=== PATIENT | female | born 1975 | race Caucasian/White ===

== ENCOUNTER 2020-12-11 22:03 | Emergency (ER) | payer OTHER, SELFPAY ==
[2020-12-11 22:03] VITALS: BP 143/78; PULSE 116; RESP 18; TEMP 37.2; O2SAT 97; BMI 44.6
[2020-12-11 22:37] LABS: Bacteria 0 SEEN /hpf (None Seen); Mucous, Urine 0 SEEN /hpf (<or=2+)
[2020-12-11 22:48] LABS: Color, Urine Yellow (Yellow); Glucose, Dipstick Normal (Normal); Ketone-Dipstick Negative (Negative); Leukocyte Esterase-Dipstick 500 /ul (Negative); Nitrite-Dipstick Negative (Negative); Occult Blood-Urine 250 /ul (Negative); Protein-Dipstick 30 mg/dl (Negative); Specific Gravity, Urine 1.015 (1.002-1.030); Urine Bilirubin Dipstick Negative (Negative); Urine Clarity Cloudy (Clear); Urine Urobilinogen Normal (Normal)
[2020-12-11] MEDS: 0.9% Normal Saline 1,000 ML 150 ML IV (22:48)
[2020-12-11 22:50] LABS: Absolute Lymphocyte Count 1.48 X10^3/uL (0.83-4.51); Absolute Neutrophil Count 8.5 X10^3/uL (2.0-7.7); Basophil# 0.03 X10^3/uL; Basophil% 0.3 % (0-1); Eosinophil# 0.04 X10^3/uL; Eosinophils% 0.4 % (0-5); Hematocrit 38.9 % (37-47); Hemoglobin 12.7 g/dL (12.0-15.0); Lymphocyte # 1.48 X10^3/ul (0.83-4.51); Lymphocyte % 13.1 % (19-41); Mean Corp Hgb Conc 32.6 g/dL (32-36); Mean Corpuscular Hgb 27.6 pg (27.0-32.0); Mean Corpuscular Volume 84.6 fL (81-99); Mean Platelet Vol. 10.1 fl (6.2-12.0); Monocyte# 1.17 X10^3/uL; Monocyte% 10.4 % (0-10); NRBC Flagged by Analyzer 0 % (0-5); Neutrophil # 8.54 X10^3/uL (2.7-7.7); Neutrophil % 75.4 % (47-70); Platelet Count 194 K/mm3 (150-450); RBC Distribution Width CV 13.3 % (11.6-14.6); RBC Distribution Width SD 41.3 fl (35.1-43.9); White Blood Count 11.3 K/mm3 (4.4-11.0)
[2020-12-11 22:59] LABS: Red Blood Cells-Urine 5-10 SEEN /hpf (0-5); Squamous Epithelial Cells - UA 0-5 SEEN /hpf (5-10); White Blood Cells >100 SEEN /hpf (0-5)
[2020-12-11 23:06] LABS: Anion Gap 8 (5-15); BUN 14 mg/dL (7-18); BUN/Creat Ratio 11.3 RATIO (10-20); Calcium,Total 8.8 mg/dL (8.5-10.1); Chloride 100 mmol/L (98-107); Creatinine, Serum 1.24 mg/dL (0.55-1.02); EST Glomerular Filtration Rate 50 mL/min (>60); Est Glom Filt Rate - Afr Amer 60 mL/min (>60); Estimated Creatinine Clearance 63.26 ml/min; Glucose 150 mg/dL (74-106); Potassium 3.6 mmol/L (3.5-5.1); Sodium Level 135 mmol/L (136-145)
[2020-12-11 23:15] LABS: Lactic Acid 1.3 mmol/L (0.4-1.9)
--- NOTE | 2020-12-11 23:26 | EX.ED.DYSGE1 ---
HPI History of Present Illness Chief Complaint: Complaint Informant: patient Onset/Context/Timing Onset: Days Context: Gradual Onset Timing: Waxes and wanes Current Severity: Mild Maximum Severity: Moderate Narrative Narrative: Patient presents secondary to known kidney stone and developing a fever. Patient was diagnosed with an 8 mm proximal right sided kidney stone at [facility] 6 days ago. Patient was seen by her PCP yesterday and advised she would not able to pass this needs to follow-up with urology. She will call tomorrow for an appointment. She developed chills followed by a fever of 101.5 at home tonight. She does want to ensure there was no significant infection that she would need antibiotics were. She otherwise feels well. She denies cough or URI symptoms. She had some mild lower abdominal cramping. No dysuria. [facility] Medical History Kidney stones Home Medications sulfamethoxazole-trimethoprim [Bactrim DS] 1 tab PO BID #14 tab 12/12/20 [Rx Last Taken Unknown] Allergy/AdvReac Type Severity Reaction Status Date / Time ciprofloxacin [From Cipro] Allergy Hives Verified 12/11/20 22:06 nitrofurantoin Allergy Hives Verified 12/11/20 22:06 [From Macrobid] Surgical History History of cholecystectomy History of discectomy Social History Smoking Status: Never smoker ROS ROS ED Constitutional Constitutional ED: Reports chills and fever(s) Eyes Eyes: Denies change in vision ENT ENT ED: Denies sore throat Cardiovascular Cardiovascular: Denies chest pain Respiratory/Chest Respiratory/Chest: Denies cough or dyspnea Gastrointestinal Gastrointestinal: Reports abdominal pain; Denies diarrhea, nausea or vomiting Genitourinary Genitourinary ED: Denies dysuria Musculoskeletal Musculoskeletal: Reports back pain Integumentary Denies rash Neurologic Neurologic: Denies headache(s) or weakness Psychiatric Psychiatric: Denies anxiety or depression Endocrine Endocrinology: Denies polydipsia or polyuria Allergic/Immunologic Allergic/Immunologic ED: Denies urticaria EXAM Physical Exam Const Vital Signs: 12/11/20 22:03 Temperature 99 F Temperature Source Oral Pulse Rate 116 H Respiratory Rate 18 Blood Pressure 143/78 H Blood Pressure Mean 99 Pulse Ox 97 Oxygen Delivery Method Room Air Positive well nourished and well developed General Appearance ED: well developed HEENT Reports normocephalic and head/scalp atraumatic Eyes PERRL and EOMs intact bilaterally Neck supple Chest Wall inspection of chest normal and palpation of chest normal Resp normal respiratory effort and clear to auscultation bilaterally Cardio regular rate and regular rhythm GI non-tender Auscultation: hypoactive bowel sounds Palpation: soft Back/Spine no CVA tenderness Extremity normal to inspection Neuro oriented x3 and no sensory deficits noted Sensorium / Orientation: alert Motor Exam: strength 5/5 throughout Psych mental status grossly normal Skin no rashes or lesions noted MDM MDM MDM Narrative Medical decision making narrative: Blood work and urinalysis are obtained. Blood cultures and urine culture are sent. Lab Data Attestation: I reviewed the patient's lab results. Labs: Laboratory Results - last 24 hr 12/11/20 12/11/20 12/11/20 22:12 22:40 22:40 WBC 11.3 H RBC 4.60 Hgb 12.7 Hct 38.9 MCV 84.6 MCH 27.6 MCHC 32.6 RDW Std Deviation 41.3 RDW Coeff of Partha 13.3 Plt Count 194 MPV 10.1 Immature Gran % (Auto) 0.400 Neut % (Auto) 75.4 H Lymph % (Auto) 13.1 L [place] % (Auto) 10.4 H Eos % (Auto) 0.4 Baso % (Auto) 0.3 Absolute Neuts (auto) 8.5 H Absolute Lymphs (auto) 1.48 Nucleated RBC % 0 Sodium 135 L Potassium 3.6 Chloride 100 Carbon Dioxide 27.0 Anion Gap 8 BUN 14 Creatinine 1.24 H Estim Creat Clear Calc 63.26 Est GFR (MDRD) Af Amer 60 Est GFR (MDRD) Non-Af 50 L BUN/Creatinine Ratio 11.3 Glucose 150 H Lactic Acid Calcium 8.8 Urine Color Yellow Urine Clarity Cloudy Urine pH 6.0 Ur Specific [place] 1.015 Urine Protein 30 H Urine Glucose (UA) Normal Urine Ketones Negative Urine Occult Blood 250 H Urine Nitrite Negative Urine Bilirubin Negative Urine Urobilinogen Normal Ur Leukocyte Esterase 500 H Urine RBC 5-10 SEEN Urine WBC >100 SEEN Ur Squamous Epith Cells 0-5 SEEN Urine Bacteria 0 SEEN Urine Mucus 0 SEEN 12/11/20 22:40 WBC RBC Hgb Hct MCV MCH MCHC RDW Std Deviation RDW Coeff of Partha Plt Count MPV Immature Gran % (Auto) Neut % (Auto) Lymph % (Auto) [place] % (Auto) Eos % (Auto) Baso % (Auto) Absolute Neuts (auto) Absolute Lymphs (auto) Nucleated RBC % Sodium Potassium Chloride Carbon Dioxide Anion Gap BUN Creatinine Estim Creat Clear Calc Est GFR (MDRD) Af Amer Est GFR (MDRD) Non-Af BUN/Creatinine Ratio Glucose Lactic Acid 1.3 Calcium Urine Color Urine Clarity Urine pH Ur Specific [place] Urine Protein Urine Glucose (UA) Urine Ketones Urine Occult Blood Urine Nitrite Urine Bilirubin Urine Urobilinogen Ur Leukocyte Esterase Urine RBC Urine WBC Ur Squamous Epith Cells Urine Bacteria Urine Mucus Treatment and Re-Evaluation Comments:: Patient is given IV fluids. Urinalysis does show leukocyte esterase and white cells, but 0 bacteria. She is given a dose of IV Rocephin and will be treated with Bactrim. She is to call Dr. Olson tomorrow for close follow-up. She is given return instructions. Discharge Plan Triage Chief Complaint: Complaint ED Provider: Myriam Cornell Dx/Rx/DC Orders Clinical Impression: Kidney stone, Fever Instructions: ED Fever Control (Adult), ED Kidney Stone w/ Colic Prescriptions: New sulfamethoxazole-trimethoprim [Bactrim DS] 800-160 mg tablet 1 tab PO BID Qty: 14 RF: 0 Primary Care Provider: Alpesh Fischer Referrals: Alpesh Fischer DO [Primary Care Provider] - Saurabh Olson MD [STAFF PHYSICIAN] - As soon as possible Disposition Disposition: Home, self care
[2020-12-11] MEDS: Ceftriaxone 1 GM/50 ML BAG IV (23:39)
[2020-12-12 00:43] VITALS: BP 141/68; PULSE 96; RESP 18; O2SAT 98
== END 2020-12-12 00:46 | disposition home or self-care (01) ==
PROVIDERS: Emergency Provider Emergency Medicine; PCP Family Medicine
DX: R50.9 Fever, unspecified (principal); N20.0 Calculus of kidney
CPT/HCPCS: 80048; 81001; 83605; 85025; 87040; 87086; 87088; 96365; 99283; J7030; A4216

== ENCOUNTER 2020-12-12 10:39 | Day surgery (SDC) | payer OTHER, SELFPAY ==
[2020-12-11 22:03] VITALS: BMI 44.6
[2020-12-12] VITALS (9 sets, daily range): BP systolic 110–143; BP diastolic 57–87; PULSE 91–111; RESP 14–18; TEMP 36.3–38.2; O2SAT 96–100; BMI 44.4
--- NOTE | 2020-12-12 11:03 | EKG12_ITS ---
Test Reason : CP Blood Pressure : / mmHG Vent. Rate : 101 BPM Atrial Rate : 101 BPM P-R Int : 144 ms QRS Dur : 090 ms QT Int : 328 ms P-R-T Axes : 057 035 028 degrees QTc Int : 425 ms Sinus tachycardia Otherwise normal ECG Confirmed by DES YORK, GUILLE ([id number]), editor farm journal NATI NAZARIO ([id number]) on 12/15/2020 9:53:54 AM Referred By: Confirmed By:GUILLE UNNES MD
--- NOTE | 2020-12-12 11:21 | EDS_ITS ---
HPI History of Present Illness Chief Complaint: Chest Pain Informant: patient Onset/Context/Timing Onset: Days (3) Activity at onset: gradual Timing: Intermittent Quality: Positive for Dull (Soreness) Location: Substernal Worsened By: Nothing Relieved By: Nothing Associated Symptoms: Positive for Nausea, Vomiting and Fever; Negative for Diaphoresis, Dyspnea, Cough, Lightheadedness, Acid Reflux and Palpitations Narrative Narrative: Patient presents with chest pain that has been intermittent over the past 3 days. Patient describes it as a soreness. Patient states it is over the substernal area. Patient states it comes and goes. Patient admits to some nausea and vomiting. Patient also admits to fever of 101.5 at home. Patient was at her urologist office today and was asked about the chest pain. Patient told the urologist who then referred the patient to the emergency department for cardiac work-up. Patient is scheduled for stone removal and stent placement later today. However, with her chest pain, she needs to be cleared cardiac lara before she can be allowed to go to surgery. Patient has an 8 mm proximal right ureteral calculus. CVD Risk Factors: Negative for Hypertension, Diabetes, Hypercholesterolemia, Family History 1' </=55 and Smoking PE Risk Factors: Negative for Recent Travel/Surgery, Recent Immobilization, Prior DVT or PE and Cancer [facility] Medical History (Updated 12/12/20 @ 12:[address] Jean Marie Meza DO) Kidney stones Home Medications sulfamethoxazole-trimethoprim [Bactrim DS] 1 tab PO BID #14 tab 12/12/20 [Rx Last Taken Unknown] Allergy/AdvReac Type Severity Reaction Status Date / Time ciprofloxacin [From Cipro] Allergy Hives Verified 12/12/20 10:40 nitrofurantoin Allergy Hives Verified 12/12/20 10:40 [From Macrobid] Surgical History (Updated 12/12/20 @ 11:[address] Jean Marie Meza DO) History of section History of cholecystectomy History of discectomy Social History Smoking Status: Never smoker ROS ROS ED Constitutional Constitutional ED: Reports fever(s); Denies chills Eyes Eyes: Denies blurry vision or change in vision ENT ENT ED: Denies rhinorrhea or sore throat Cardiovascular Cardiovascular: Reports chest pain; Denies palpitations Respiratory/Chest Respiratory/Chest: Denies cough or dyspnea Gastrointestinal Gastrointestinal: Reports nausea and vomiting; Denies abdominal pain Genitourinary Genitourinary ED: Reports hematuria; Denies dysuria Musculoskeletal Musculoskeletal: Reports back pain; Denies neck pain Integumentary Denies abscess or rash Neurologic Neurologic: Reports headache(s); Denies weakness Allergic/Immunologic Allergic/Immunologic ED: Denies mouth swelling or urticaria EXAM Physical Exam Const Vital Signs: 12/12/20 10:39 12/12/20 10:41 12/12/20 10:44 Temperature 97.3 F L 97.3 F L Temperature Source Temporal Temporal Pulse Rate 111 H 111 H Respiratory Rate 14 14 Respiratory Effort Normal Respiratory Pattern Blood Pressure 143/77 H 143/77 H Blood Pressure Mean 99 99 Blood Pressure Source Blood Pressure Position Blood Pressure Location Pulse Ox 99 99 Oxygen Delivery Method Room Air Room Air 12/12/20 11:41 12/12/20 12:33 12/12/20 13:38 Temperature 98.9 F 98.9 F Temperature Source Temporal Temporal Pulse Rate 101 H 101 H Respiratory Rate 18 18 Respiratory Effort Respiratory Pattern Normal Blood Pressure 122/63 H 122/63 H Blood Pressure Mean 82 82 Blood Pressure Source Monitor Blood Pressure Position Sitting Blood Pressure Location Right Arm Pulse Ox 99 99 Oxygen Delivery Method Room Air Room Air Room Air Positive well nourished, well developed and obese General Appearance ED: well developed Nutritional Appearance: obese HEENT normocephalic and atraumatic Eyes PERRL and EOMs intact bilaterally Neck supple and no JVD Chest Wall palpation of chest normal Resp normal respiratory effort and clear to auscultation bilaterally Effort and Inspection: Negative for respiratory distress Cardio regular rate, regular rhythm and no murmurs GI normal to inspection, nondistended, normoactive bowel sounds, soft to palpation, non-tender and non-distended Extremity normal to inspection General Extremety ED: Negative for edema or tenderness General Extremity: Negative for edema Neuro oriented x3, CN's II-XII intact bilaterally and no sensory deficits noted Sensorium / Orientation: awake and alert Motor Exam: strength 5/5 throughout Psych mental status grossly normal Heart Score History: Slightly/Non-Suspicious ECG: Normal Age: </= 45 years Risk Factors: No Risk Factors Troponin: </= Normal Limit Score: 0 MDM MDM MDM Narrative Medical decision making narrative: EKG was obtained. On my interpretation, it showed a normal sinus rhythm with a rate of 101. [place] interval, QRS interval, and QTc intervals were all normal. Supai was normal. There are no acute ST or T wave changes. Portable 1 view chest x-ray was obtained. On my interpretation, lung stiles are clear. There is normal cardiac silhouette. Bony thorax is normal. There is no acute process noted. Radiologist also interpreted the x- ray and agrees. CBC and basic metabolic profile were obtained and were essentially within normal limits. Troponin was normal. Case was discussed with Dr. Mack. She recommended obtaining a COVID-19 rapid antigen and test. These were ordered. She will take patient to surgery later today. Patient will be transferred there. Patient understood and was agreeable with the plan. All questions were answered. Lab Data Attestation: I reviewed the patient's lab results. Labs: Laboratory Results - last 24 hr 12/12/20 12/12/20 12/12/20 11:25 11:25 12:30 WBC 10.2 RBC 4.47 Hgb 12.3 Hct 38.9 MCV 87.0 MCH 27.5 MCHC 31.6 L RDW Std Deviation 42.6 RDW Coeff of Partha 13.3 Plt Count 186 MPV 10.3 Immature Gran % (Auto) 0.400 Neut % (Auto) 76.1 H Lymph % (Auto) 11.0 L [place] % (Auto) 11.9 H Eos % (Auto) 0.2 Baso % (Auto) 0.4 Absolute Neuts (auto) 7.8 H Absolute Lymphs (auto) 1.12 Nucleated RBC % 0 Sodium 137 Potassium 3.8 Chloride 101 Carbon Dioxide 27.0 Anion Gap 9 BUN 12 Creatinine 1.13 H Estim Creat Clear Calc 69.42 Est GFR (MDRD) Af Amer 67 Est GFR (MDRD) Non-Af 56 L BUN/Creatinine Ratio 10.6 Glucose 117 H Calcium 8.5 Troponin I < 0.015 Serum , Qual Urine Color Yellow Urine Clarity Sl. Cloudy Urine pH 5.0 Ur Specific [place] 1.020 Urine Protein 100 H Urine Glucose (UA) Normal Urine Ketones 5 H Urine Occult Blood 150 H Urine Nitrite Negative Urine Bilirubin Negative Urine Urobilinogen Normal Ur Leukocyte Esterase 100 H Urine RBC 0-5 SEEN Urine WBC 5-10 SEEN Ur Squamous Epith Cells 5-10 SEEN Urine Bacteria 1+ Urine Mucus 0 SEEN 06/14/21 12:40 WBC RBC Hgb Hct MCV MCH MCHC RDW Std Deviation RDW Coeff of Partha Plt Count MPV Immature Gran % (Auto) Neut % (Auto) Lymph % (Auto) [place] % (Auto) Eos % (Auto) Baso % (Auto) Absolute Neuts (auto) Absolute Lymphs (auto) Nucleated RBC % Sodium Potassium Chloride Carbon Dioxide Anion Gap BUN Creatinine Estim Creat Clear Calc Est GFR (MDRD) Af Amer Est GFR (MDRD) Non-Af BUN/Creatinine Ratio Glucose Calcium Troponin I Serum , Qual NEGATIVE Urine Color Urine Clarity Urine pH Ur Specific [place] Urine Protein Urine Glucose (UA) Urine Ketones Urine Occult Blood Urine Nitrite Urine Bilirubin Urine Urobilinogen Ur Leukocyte Esterase Urine RBC Urine WBC Ur Squamous Epith Cells Urine Bacteria Urine Mucus Radiography Chest X-Ray - ED: 1 View, Read by ED Physician, Read by Radiologist and Normal Diagnostic Testing: Radiology Impression Chest X-Ray 12/12/20 11:30 IMPRESSION: Normal x-ray examination of the chest. Electronically Signed: Talha Moffett MD at 12:11 EDT , Service support , EKG Initial EKG: Attestation: I personally reviewed and interpreted this EKG as follows: Interpretation: No Acute Injury Pattern and Sinus Tachycardia (101) Prior EKG tracings: not available for review Treatment and Re-Evaluation Vital Sign Attestation:: Vital signs were reviewed prior to admission to the surgery unit. They are stable. Discharge Plan Dx/Rx/DC Orders Clinical Impression: Calculus of proximal right ureter, Chest pain of uncertain etiology Disposition Disposition: Acute Care Hospital [facility] Discharge Date/Time: 12/12/20 13:39
[2020-12-12 11:30] LABS: Absolute Lymphocyte Count 1.12 X10^3/uL (0.83-4.51); Absolute Neutrophil Count 7.8 X10^3/uL (2.0-7.7); Basophil# 0.04 X10^3/uL; Basophil% 0.4 % (0-1); Eosinophil# 0.02 X10^3/uL; Eosinophils% 0.2 % (0-5); Hematocrit 38.9 % (37-47); Hemoglobin 12.3 g/dL (12.0-15.0); Lymphocyte # 1.12 X10^3/ul (0.83-4.51); Mean Corp Hgb Conc 31.6 g/dL (32-36); Mean Corpuscular Hgb 27.5 pg (27.0-32.0); Mean Platelet Vol. 10.3 fl (6.2-12.0); Monocyte# 1.21 X10^3/uL; Monocyte% 11.9 % (0-10); NRBC Flagged by Analyzer 0 % (0-5); Neutrophil # 7.75 X10^3/uL (2.7-7.7); Neutrophil % 76.1 % (47-70); Platelet Count 186 K/mm3 (150-450); RBC Distribution Width CV 13.3 % (11.6-14.6); RBC Distribution Width SD 42.6 fl (35.1-43.9); Red Blood Count 4.47 M/mm3 (4.2-5.4); White Blood Count 10.2 K/mm3 (4.4-11.0)
--- NOTE | 2020-12-12 11:30 | RAD_ITS ---
STUDY: X-RAY CHEST REASON FOR EXAM: Female, 44 years old. Chest pain TECHNIQUE: Single AP portable view of the chest. COMPARISON: None. FINDINGS: The lungs are clear and expanded. There is no demonstrated pleural abnormality. Normal size heart. Normal mediastinum and marianela. Normal visualized pulmonary arteries. Normal visualized aortic arch and descending thoracic aorta. Normal visualized thoracic spine. Normal visualized ribs, clavicles, and shoulders. There is no demonstrated abnormality of the visualized soft tissue structures of the upper abdomen. RAD/Chest 1 View (Portable) IMPRESSION: Normal x-ray examination of the chest. Electronically Signed: Talha Moffett MD at 12:11 EDT , Service support ,
[2020-12-12 11:47] LABS: Anion Gap 9 (5-15); BUN 12 mg/dL (7-18); BUN/Creat Ratio 10.6 RATIO (10-20); Calcium,Total 8.5 mg/dL (8.5-10.1); Chloride 101 mmol/L (98-107); Creatinine, Serum 1.13 mg/dL (0.55-1.02); EST Glomerular Filtration Rate 56 mL/min (>60); Est Glom Filt Rate - Afr Amer 67 mL/min (>60); Estimated Creatinine Clearance 69.42 ml/min; Glucose 117 mg/dL (74-106); Potassium 3.8 mmol/L (3.5-5.1); Sodium Level 137 mmol/L (136-145)
[2020-12-12 12:34] LABS: Mucous, Urine 0 SEEN /hpf (<or=2+)
[2020-12-12 12:36] LABS: Color, Urine Yellow (Yellow); Glucose, Dipstick Normal (Normal); Ketone-Dipstick 5 mg/dl (Negative); Leukocyte Esterase-Dipstick 100 /ul (Negative); Nitrite-Dipstick Negative (Negative); Occult Blood-Urine 150 /ul (Negative); Protein-Dipstick 100 mg/dl (Negative); Urine Bilirubin Dipstick Negative (Negative); Urine Clarity Sl. Cloudy (Clear); Urine Urobilinogen Normal (Normal)
[2020-12-12 12:44] LABS: Bacteria 1+ /hpf (None Seen); Red Blood Cells-Urine 0-5 SEEN /hpf (0-5); Squamous Epithelial Cells - UA 5-10 SEEN /hpf (5-10); White Blood Cells 5-10 SEEN /hpf (0-5)
[2020-12-12 13:16] LABS: Internal QC Validated? YES +Cl - CLEAR BKGD; Pregnancy, Serum, hCG Quali. NEGATIVE Negative
[2020-12-12] MEDS: Lactated Ringers 1,000 ML 100 ML IV ×2 (14:20→20:14)
--- NOTE | 2020-12-12 16:55 | PCM.HP.STD ---
HPI - General HPI Narrative KUNAL CÁRDENAS, is a 44 F who presents with right flank pain, fever to 101.5 yesterday at home, nausea. Was seen at the ER and diagnosed with right UPJ stone 8mm with hydronephrosis 1 week ago, seen a second time in the ER last night. Last stone was 13 years ago when she was , not sure if it passed, but never had surgery. Now having significant urgency and frequency. [facility] Medical History (Updated 12/12/20 @ 17:[address] Dorcas Mack MD) Kidney stones Urinary tract infection Home Medications sulfamethoxazole-trimethoprim [Bactrim DS] 1 tab PO BID #14 tab 12/12/20 [Rx Last Taken Unknown] Allergy/AdvReac Type Severity Reaction Status Date / Time ciprofloxacin [From Cipro] Allergy Hives Verified 12/12/20 10:40 nitrofurantoin Allergy Hives Verified 12/12/20 10:40 [From Macrobid] Surgical History History of section History of cholecystectomy History of discectomy Social History Smoking Status: Never smoker ROS Constitutional Constitutional: Reports chills, fever(s) and poor appetite Eyes Eyes: Reports systems reviewed and no addt'l complaints, except as documented ENT HEENT: Reports systems reviewed and no addt'l complaints, except as documented Cardiovascular Cardiovascular: Reports chest pain, nausea and other Details: feels a chest tightness. no radiation to jaw, arm etc. No abnormal cardiac history. ; Denies dizziness, dyspnea or dyspnea on exertion Respiratory/Chest Respiratory/Chest: Reports chest tightness; Denies cough, difficulty clearing secretions or inability to speak Gastrointestinal Gastrointestinal: Reports nausea and vomiting Genitourinary Genitourinary: Reports low back pain, urinary frequency and urinary urgency; Denies hematuria Musculoskeletal Musculoskeletal: Reports systems reviewed and no addt'l complaints, except as documented Integumentary Integumentary: Reports systems reviewed and no addt'l complaints, except as documented and rash Neurologic Neurologic: Reports systems reviewed and no addt'l complaints, except as documented Psychiatric Psychiatric: Reports systems reviewed and no addt'l complaints, except as documented Endocrine Endocrinology: Reports systems reviewed and no addt'l complaints, except as documented Vital Signs Vital Signs Vital Signs: 12/12/20 10:39 12/12/20 10:41 12/12/20 10:44 Temperature 97.3 F L 97.3 F L Temperature Source Temporal Temporal Pulse Rate 111 H 111 H Respiratory Rate 14 14 Respiratory Effort Normal Respiratory Pattern Blood Pressure 143/77 H 143/77 H Blood Pressure Mean 99 99 Blood Pressure Source Blood Pressure Position Blood Pressure Location Pulse Ox 99 99 Oxygen Delivery Method Room Air Room Air 12/12/20 11:41 12/12/20 12:33 12/12/20 13:38 Temperature 98.9 F 98.9 F Temperature Source Temporal Temporal Pulse Rate 101 H 101 H Respiratory Rate 18 18 Respiratory Effort Respiratory Pattern Normal Blood Pressure 122/63 H 122/63 H Blood Pressure Mean 82 82 Blood Pressure Source Monitor Blood Pressure Position Sitting Blood Pressure Location Right Arm Pulse Ox 99 99 Oxygen Delivery Method Room Air Room Air Room Air Weight Weight: 140.6 kg Body Mass Index (BMI) 44.4 Physical Exam Const alert, oriented x3 and well nourished General Appearance: cooperative and well kempt Exam Limitations: no limitations Nutritional Appearance: overweight HEENT normocephalic, head/scalp atraumatic and hearing grossly normal bilaterally Eyes conjunctivae normal General Eye: normal appearance of both eyes Neck supple General: trachea midline Lymph Lymphatic: no lymphedema noted Chest inspection of chest normal Chest: symmetrical chest wall rise Resp normal respiratory effort, normal air movement, no retractions and no use of accessory muscles Effort and Inspection: able to speak in complete sentences and symmetric chest movement Auscultation: clear to auscultation bilaterally Cardio regular rhythm Rate: tachycardic GI soft to palpation, non-tender and non-distended Back/Spine General Back: CVA tenderness right Extremity no clubbing, cyanosis or edema Skin no rashes or lesions noted, no wounds, skin turgor normal, no jaundice, no petechiae and no mottling Neuro oriented x3, CN's II-XII intact bilaterally and moves all extremities Psych mental status grossly normal, thought process normal, cooperative and affect normal Results Lab / Micro Data Result Diagrams: 12/12/20 11:25 12/12/20 11:25 Labs: Laboratory Results - last 24 hr 12/12/20 12/12/20 12/12/20 11:25 11:25 12:30 WBC 10.2 RBC 4.47 Hgb 12.3 Hct 38.9 MCV 87.0 MCH 27.5 MCHC 31.6 L RDW Std Deviation 42.6 RDW Coeff of Partha 13.3 Plt Count 186 MPV 10.3 Immature Gran % (Auto) 0.400 Neut % (Auto) 76.1 H Lymph % (Auto) 11.0 L [place] % (Auto) 11.9 H Eos % (Auto) 0.2 Baso % (Auto) 0.4 Absolute Neuts (auto) 7.8 H Absolute Lymphs (auto) 1.12 Nucleated RBC % 0 Sodium 137 Potassium 3.8 Chloride 101 Carbon Dioxide 27.0 Anion Gap 9 BUN 12 Creatinine 1.13 H Estim Creat Clear Calc 69.42 Est GFR (MDRD) Af Amer 67 Est GFR (MDRD) Non-Af 56 L BUN/Creatinine Ratio 10.6 Glucose 117 H Calcium 8.5 Troponin I < 0.015 Serum , Qual Urine Color Yellow Urine Clarity Sl. Cloudy Urine pH 5.0 Ur Specific [place] 1.020 Urine Protein 100 H Urine Glucose (UA) Normal Urine Ketones 5 H Urine Occult Blood 150 H Urine Nitrite Negative Urine Bilirubin Negative Urine Urobilinogen Normal Ur Leukocyte Esterase 100 H Urine RBC 0-5 SEEN Urine WBC 5-10 SEEN Ur Squamous Epith Cells 5-10 SEEN Urine Bacteria 1+ Urine Mucus 0 SEEN 12/12/20 12:40 WBC RBC Hgb Hct MCV MCH MCHC RDW Std Deviation RDW Coeff of Partha Plt Count MPV Immature Gran % (Auto) Neut % (Auto) Lymph % (Auto) [place] % (Auto) Eos % (Auto) Baso % (Auto) Absolute Neuts (auto) Absolute Lymphs (auto) Nucleated RBC % Sodium Potassium Chloride Carbon Dioxide Anion Gap BUN Creatinine Estim Creat Clear Calc Est GFR (MDRD) Af Amer Est GFR (MDRD) Non-Af BUN/Creatinine Ratio Glucose Calcium Troponin I Serum , Qual NEGATIVE Urine Color Urine Clarity Urine pH Ur Specific [place] Urine Protein Urine Glucose (UA) Urine Ketones Urine Occult Blood Urine Nitrite Urine Bilirubin Urine Urobilinogen Ur Leukocyte Esterase Urine RBC Urine WBC Ur Squamous Epith Cells Urine Bacteria Urine Mucus Micro: Microbiology 12/12/20 12:22 SARS-CoV-2 Antigen (Rapid) - Final Mucosa - Nose Radiology Impression Chest X-Ray 12/12/20 11:30 IMPRESSION: Normal x-ray examination of the chest. Electronically Signed: Talha Moffett MD at 12:11 EDT , Service support , Assessment & Plan Assessment/Plan (1) Calculus of proximal right ureter: PLAN: proceed with cystoscopy and right ureteral stent insertion, stone treatment at later date. antibiotics and supportive care informed consent obtained (2) Chest pain of uncertain etiology: PLAN: negative evaluation in the ER (3) Fever: (4) Urinary tract infection:
--- NOTE | 2020-12-12 18:57 | PCM.OPRPT ---
Problems Associated Problem List Diagnoses (1) Calculus of proximal right ureter: (2) Acute pyelonephritis: (3) Hydronephrosis due to obstruction of ureter: Report of Operation Date of Procedure: 12/12/20 Pre-Operative Diagnosis: Right ureteral calculus with hydronephrosis and acute pyelonephritis Post-Operative Diagnosis: Same Surgery/Procedure Performed:: Cystoscopy, insertion of right ureteral stent Surgeon: Dorcas Mack Type of Anesthesia: MAC Description of Procedure: The patient is a 44-year-old female with a right obstructing proximal ureteral calculus with hydronephrosis, acute pyelonephritis. She presents for a right ureteral stent insertion. Informed consent was obtained. Patient was taken to the operating room and placed on the operating room table. Anesthesia monitored the head, neck, airway, IV access and vital signs throughout the case. Once anesthesia was appropriately ministered, the patient was placed into dorsal lithotomy position was prepped and draped in usual sterile fashion. At this time the cystoscope was inserted through the urethra under direct visualization into the urinary bladder. The bladder mucosa was visualized in its entirety and found to be without mass, ulceration or other abnormality. The right ureteral orifice was clearly visualized. It was intubated with a 0.035 Glidewire. A 6 [place] 26 cm double-J stent was inserted over the wire with good curling in the renal pelvis as well as the urinary bladder. The patient's bladder was then emptied, a fresh urine specimen was sent for culture. The patient was awakened and taken to the recovery room in good condition. There were no complications during this procedure. Grafts/Implants Used: [id number] JJ stent Complications none Admit VTE Documentation VTE Present on Admission: Yes VTE Mechan Device Prophylaxis: SCD's VTE Pharm Prophylaxis ordered?: No Reason prophylaxis not ordered:: Treatment Not Indicated
--- NOTE | 2020-12-12 19:02 | PCM.DC ---
Discharge Instructions Diet Discharge Diet: No restrictions Activity Discharge Activity: Return to Normal Activity, May Shower and May Take a Tub Bath May resume sexual activity in: No Restrictions Dressing / Incision Call your doctor if you observe: Fever of 101 or Higher, Inability to urinate, Inability to have a bowel movement, Calf discomfort and Uncontrolled pain Follow Up Care Please Follow Up With: Dorcas Mack MD When: Call the office for instructions Test Results: Test results from this visit will be discussed in further detail at your follow-up appointment, if applicable. Discharge Plan Admission Attending Provider: Dorcas Mack Primary Care Provider: Alpesh Fischer Discharge Orders/Prescriptions Prescriptions: New ondansetron HCl [ondansetron HCl] 8 MG tablet 8 mg PO Q8H PRN PRN (Reason: Nausea) 7 Days Qty: 20 RF: 0 phenazopyridine [Pyridium] 200 MG tablet 200 mg PO TID PRN PRN (Reason: Bladder Spasms) 7 Days Qty: 30 RF: 0 sulfamethoxazole-trimethoprim [sulfamethoxazole-trimethoprim] 1 TABLET tablet 1 tab PO BID 10 Days Qty: 20 RF: 0 sulfamethoxazole-trimethoprim [Bactrim DS] 800-160 mg tablet 1 tab PO Q12H Qty: 20 RF: 0 Discontinued sulfamethoxazole-trimethoprim [Bactrim DS] 800-160 mg tablet 1 tab PO BID Qty: 14 RF: 0 Referrals / Follow Up: Alpesh Fischer DO [Primary Care Provider] - Disposition Disposition (needs filled in before D/C Order can be placed): Home, self care
[2020-12-12] MEDS: Acetaminophen 325 MG Tablet 650 MG PO (20:10)
== END 2020-12-12 21:10 | disposition home or self-care (01) ==
LOC: ED 12:25 → SDC 13:01
PROVIDERS: Emergency Provider Emergency Medicine; PCP Family Medicine; Visit Provider Urology
PROC: (CPT 52332; principal; 2020-12-12 15:50)
DX: N13.6 Pyonephrosis (principal); R07.9 Chest pain, unspecified
CPT/HCPCS: 00910; 52332; 36415; 71045; 76000; 80048; 81001; 84484; 84703; 85025; 87086; 87088; 87426; 93005; 99285; J7120; A4216; J2405

== ENCOUNTER 2021-01-24 07:03 | Day surgery (SDC) | payer OTHER, SELFPAY ==
[2020-12-12 13:38] VITALS: BMI 44.4
[2021-01-24] VITALS (8 sets, daily range): BP systolic 134–146; BP diastolic 75–95; PULSE 87–94; RESP 16; TEMP 36.1–36.3; O2SAT 94–100; BMI 46.3
--- NOTE | 2021-01-24 | CALC_PTH ---
PATIENT: KUNAL CÁRDENAS LOC: [facility] [place] U#:[id number] AGE/SX: 45/F ROOM: RE01/24/[address]: Dr. Dorcas Mack MD : 1975 BED: DIS: 01/24/2021 SPEC #: [id number] RECD: 01/24/21 10:30 STATUS: LEXI METCALF #: [id number] LEO: 01/24/21 00:[address]: Dorcas Mack DEPT: SURGICAL PATHOLOGY RECD BY: Braydon Gomez ENTERED: 01/24/21 10:30 SP TYPE: Calculi OTHR DR: Dr. Alpesh Fischer, DO Tissues: CALCULI Procedures: Surgery Specimen Level I HEADER OPERATION: Cysto, ureteroscopy, retro, laser, stent PRE-OP DIAGNOSIS: Calculus of right ureter, hydronephrosis TISSUE SUBMITTED: Stone analysis GROSS DIAGNOSIS Fragments of stone, clinically calculus right ureter, hydronephrosis. SJ:alex 01/25/2021 COMMENT The calculus is submitted in its entirety for chemical stone analysis. The results from this study will be reported separately. GROSS DESCRIPTION Received without fixative labeled with the patient's name and designated stone analysis. The specimen consists of multiple fragments of brownish-black stone measuring in aggregate 1 x 0.5 x 0.2 cm. The entire specimen is submitted for stone analysis. / LALI:alex 01/24/21 CPT: 08021
[2021-01-24] MEDS: Lactated Ringers 1,000 ML 100 ML IV ×2 (07:15→10:32)
[2021-01-24 07:32] LABS: Internal QC Validated? YES +Cl - CLEAR BKGD
[2021-01-24 07:33] LABS: Pregnancy, Urine Negative Negative
--- NOTE | 2021-01-24 08:15 | PCM.OPRPT ---
Problems Associated Problem List Diagnoses (1) Calculus of proximal right ureter: (2) Kidney stone: (3) Hydronephrosis due to obstruction of ureter: Report of Operation Date of Procedure: 01/24/21 Pre-Operative Diagnosis: Right ureteral stones with hydronephrosis Post-Operative Diagnosis: Same Surgery/Procedure Performed:: Cystoscopy, right retrograde pyelogram, right ureteroscopy, holmium laser lithotripsy, Stone basket extraction right ureteral stent change Surgeon: Dorcas Mack Type of Anesthesia: General Description of Procedure: The patient is a 45-year-old female who developed pyelonephritis secondary to a right ureteral calculus with hydronephrosis approximately 4 weeks ago. She now presents for definitive management of her stones. Informed consent was obtained. Patient was taken to the operating room and placed on the operating room table. Anesthesia monitored the head, neck, airway, IV access and vital signs throughout the case. Once anesthesia was appropriately ministered the patient was placed into dorsal lithotomy position was prepped and draped in usual sterile fashion. The cystoscope was inserted through the urethra under direct visualization into the urinary bladder. The right ureteral stent was easily visualized. It was grasped and removed without difficulty. The right ureteral orifice was gently intubated with an 8 Salvadorean cone-tip catheter and a retrograde pyelogram was performed under fluoroscopic visualization. The stone was identified in the distal portion of the ureter. A 0.035 Glidewire was then passed alongside the stone into the renal pelvis seen on fluoroscopic evaluation. At this time the SlimLine semirigid ureteroscope was used to gently intubate the right ureteral orifice and was inserted up to the level of the stone. The stone was then lasered into multiple pieces using a 270 ?m fiber. The pieces were then basket retrieved and sent for analysis. Using the safety wire and the cystoscope, a 6 Salvadorean 26 cm JJ stent was then passed over the safety wire with good curling achieved in the renal pelvis as well as the urinary bladder. The patient's bladder was then emptied and she was awakened and taken to the recovery room in good condition. There were no complications during this procedure. Grafts/Implants Used: 26Fr JJ stent Complications none Admit VTE Documentation VTE Present on Admission: Yes VTE Mechan Device Prophylaxis: SCD's VTE Pharm Prophylaxis ordered?: No Reason prophylaxis not ordered:: Treatment Not Indicated
--- NOTE | 2021-01-24 08:16 | PCM.DC ---
Discharge Instructions Diet Discharge Diet: No restrictions Activity Discharge Activity: Return to Normal Activity Dressing / Incision Call your doctor if you observe: Fever of 101 or Higher, Inability to urinate, Inability to have a bowel movement, Calf discomfort and Uncontrolled pain Follow Up Care Please Follow Up With: Dorcas Mack MD When: in 1 week for stent removal Test Results: Test results from this visit will be discussed in further detail at your follow-up appointment, if applicable. Discharge Plan Admission Attending Provider: Dorcas Mack Primary Care Provider: Alpesh Fischer Instructions Patient Instructions: ED Chest Pain, Noncardiac Discharge Orders/Prescriptions Prescriptions: New oxycodone-acetaminophen [oxycodone-acetaminophen] 1 TABLET tablet 2 tab PO Q8H PRN PRN (Reason: Pain) 7 Days Qty: 20 RF: 0 cephalexin [cephalexin] 500 MG capsule 500 mg PO Q12 3 Days Qty: 6 RF: 0 phenazopyridine [Pyridium] 200 MG tablet 200 mg PO TID PRN PRN (Reason: Bladder Spasms) 7 Days Qty: 30 RF: 0 Continued biotin 10,000 mcg Capsule 10,000 mcg PO DAILY RF: 0 diclofenac sodium 75 mg Tablet,Delayed Release (Dr/Ec) 75 mg PO BID PRN (Reason: Back Pain) RF: 0 Culturelle 10 billion cell Capsule 1 cap PO DAILY RF: 0 multivitamin Capsule 1 cap PO DAILY RF: 0 cranberry 1,000 mg Capsule 2,000 mg PO DAILY RF: 0 omega-3 fatty acids-vitamin E 1,000 mg Capsule 2 cap PO DAILY RF: 0 cholecalciferol (vitamin D3) [Vitamin D3] 125 mcg (5,000 unit) Tablet 125 mcg PO DAILY RF: 0 Zyrtec 10 mg Capsule 10 mg PO DAILY RF: 0 Referrals / Follow Up: Alpesh Fischer, [Primary Care Provider] - Disposition Disposition (needs filled in before D/C Order can be placed): Home, Self Care
[2021-01-24] MEDS: Cefazolin 2 GM in 0.9% Normal Saline 100 ML IV (09:20)
[2021-01-24] MEDS: Lubricating Jelly 60 GM Tube 30 GM TOPICAL (09:32)
== END 2021-01-24 12:03 | disposition home or self-care (01) ==
LOC: SDC 07:05 → AC 07:07
PROVIDERS: PCP Family Medicine; Referring Provider Urology; Visit Provider Urology
PROC: 0TJ98ZZ Inspection of Ureter, Via Natural or Artificial Opening Endoscopic (ICD-10-PCS; CPT 52352; principal; 2021-01-24 08:40)
DX: N13.2 Hydronephrosis with renal and ureteral calculous obstruction (principal); E11.9 Type 2 diabetes mellitus without complications; Z79.899 Other long term (current) drug therapy
CPT/HCPCS: 52356; 76000; 81025; 82360; 88300; J7120; C2617

== ENCOUNTER → 2024-01-22 | Outpatient (CLI) | payer OTHER, SELFPAY ==
[2024-01-22 15:25] LABS: PTHIN 24.6 pg/mL (18.4-80.1)
[2024-01-22 15:28] LABS: Vitamin D,25 Hydroxy 56.4 ng/mL
[2024-01-22 15:47] LABS: Ferritin 52 ng/mL (8-252); Free T3 2.6 pg/mL (2.18-3.98); Thyroid Stim Hormone (TSH) 0.92 uIU/mL (0.358-3.74)
[2024-01-27 15:08] LABS: Thyroid Peroxidase AB < 9 IU/mL (0-34); Zinc, Plasma or Serum 77 ug/dL (44-115)
== END | disposition home or self-care (01) ==
LOC: MTLAB 11:01
PROVIDERS: PCP Family Medicine; Referring Provider Physician Assistant Medical; Visit Provider Physician Assistant Medical
DX: L65.0 Telogen effluvium (principal); L64.8 Other androgenic alopecia
CPT/HCPCS: 36415; 82306; 82728; 83970; 84439; 84443; 84481; 84630; 86376

== ENCOUNTER 2024-10-08 05:57 | Day surgery (SDC) | payer OTHER, SELFPAY ==
--- NOTE | 2024-10-01 16:58 | HP.PCM_ITS ---
History and Physical Date of Admission: 10/16/24 HPI: The patient is a 48 year old female presenting for pre-operative visit. She is scheduled for laparoscopic bilateral salpingectomy, hysteroscopy D&C with possible fibroid resection and IUD insertion, for AUB, sterilization request, family h/o ovarian ca on 10/16/24. Procedure discussed along with risks, benefits and complications. Other alternatives discussed for management. Consent form signed? Yes. ? ? PAST MEDICAL HISTORY PAST MEDICAL HISTORYDiagnosisDate?Displacement of lumbar intervertebral disc without myelopathy??L4-5?Kidney stone??Type 2 diabetes (HCC)??Urinary tract infection, site not specified??Recurrent UTI's ? ? PAST SURGICAL HISTORY PAST SURGICAL HISTORYProcedureLateralityDate? DELIVERY ONLY?01/27/2008? , low cervical?LAPAROSCOPY SURG CHOLECYSTECTOMY?07/01/2006? Cholecystectomy, lap?LITHOTRIPSY XTRCORP SHOCK WAVE???for kidney stone?PAST SURGICAL HISTORY OF?03/31/2000?discectomy?PAST SURGICAL HISTORY OF?fall 2013? Epidural Steroid Injections ? ? ? CURRENT MEDICATIONS Current Outpatient MedicationsMedicationSigDispenseRefill?tirzepatide (MOUNJARO) 7.5 mg/0.5 mL pen injectorInject 7.5 mg subcutaneously.???lisinopril 2.5 mg tabletTake 2.5 mg by mouth once daily.???hydroCHLOROthiazide 12.5 mg tabletTake 12.5 mg by mouth once daily.???ascorbic acid (VITAMIN C ORAL)Take by mouth.???MAGNESIUM ORALTake by mouth.???ferrous sulfate (IRON ORAL)Take by mouth.???HAIR, SKIN AND NAILS, BIOTIN, ORALTake by mouth.???rosuvastatin (CRESTOR) 5 mg tabletTake 5 mg by mouth daily at bedtime.???medroxyPROGESTERone (PROVERA) 10 mg tabletTake 1 tablet by mouth as directed. 10 days a month30 tablet4?biotin 5 mg tabTake by mouth.???Lactobacillus rhamnosus GG (CULTURELLE ORAL)Take 80 mg by mouth once daily.???diclofenac, EC, (VOLTAREN) 75 mg EC tabletTAKE ONE TABLET BY MOUTH EVERY 12 HOURS NEEDED FOR SEVERE PAIN WITH FOOD???CETIRIZINE HCL (ZYRTEC ORAL)Take by mouth. Every other day???metFORMIN (GLUCOPHAGE) 1,000 mg tabletTake 1 tablet by mouth every 12 hours. (Patient not taking: Reported on 09/23/2024)???metFORMIN (GLUCOPHAGE) 1,000 mg tablet1,000 mg. (Patient not taking: Reported on 09/23/2024)???lisinopril (ZESTRIL, PRINIVIL) 10 mg tabletTake 10 mg by mouth once daily. (Patient not taking: Reported on 09/23/2024)???hydroCHLOROthiazide (HYDRODIURIL, ESIDRIX) 25 mg tabletTake 25 mg by mouth once daily. (Patient not taking: Reported on 09/23/2024)???cholecalciferol, vitamin D3, (VITAMIN D3 ORAL)Take by mouth. (Patient not taking: Reported on 09/23/2024)???DOCOSAHEXANOIC ACID/EPA (FISH OIL ORAL)Take by mouth. (Patient not taking: Reported on 09/23/2024)???CRANBERRY FRUIT EXTRACT (CRANBERRY ORAL)Take by mouth. (Patient not taking: Reported on 09/10/2023)???multivitamins(MULTIPLE VITAMIN TAB)Take one(1) tablet daily. (Patient not taking: Reported on 09/10/2023)?0?No current facility-administered medications for this visit. ? ? ALLERGIES: Cipro [Ciprofloxacin] and Macrobid [Nitrofurantoin Monohyd/M-Cryst] ? PERSONAL HISTORY: SOCIAL HISTORY Social History?Tobacco Use?Smoking status:Never?Smokeless tobacco:NeverVaping Use?Vaping status:Never UsedSubstance Use Topics?Alcohol use:Yes??Comment: occasional, NOT WHILE ?Drug use:No ? FAMILY HISTORY: FAMILY HISTORY FAMILY HISTORY ProblemRelationAge of Onset?CancerMother?? d. 55 uterine and/or ovarian; treated with surgery, chemo, radiation ?DiabetesMother??CancerFather?? unknown type of cancer ? lymphoma?Breast Canc erMaternal Grandmother?? dx 42 d. 49?HeartMaternal Grandfather??HypertensionMaternal Grandfather??AneurysmPaternal Grandfather??Ovarian cancerMaternal Aunt60?CancerOther?? pancreas d. 63 ? ? REVIEW OF SYMPTOMS: GENERAL: denies fevers or chills ENDOCRINOLOGY: has not been on steroids Cardiology : denies palpitations or chest pain Respiratory: denies SOB or cough Hematology: denies history of prolonged bleeding or easy bruising or VTE Allergy: Denies history of personal or family history of allergy to anesthesia ? PHYSICAL EXAMINATION: ? VITALS: Blood pressure 128/84, pulse 96, height 177.8 cm (5' 10), weight (!) 143.8 kg (317 lb), last menstrual period 09/02/2024, SpO2 98%. ? GENERAL: The patient is well nourished, well hydrated in no acute distress. , The patient is oriented to time, place, and person. NECK: Supple. No lynphadenopathy, normal thyroid, no thyromegaly. LUNGS: Clear to auscultation bilaterally. no wheezes, rhonchi or rales HEART: Regular rate and rhythm, Normal heart sounds, and No murmurs or gallops ? ? Pelvic US 07/28/24 from an outside facility shows a 10.6 x 6.1 x 6.4 cm uterus with 3 fibroids, 1 is 2.9 x 1.8 x 1.7 cm and subserosal, another is anterior lower uterine segment 3.3 cm and is intramural and another 1 is posterior intramural 2.4 cm. Ovaries appear normal. ? ? ? IMPRESSION: Subserosal and intramural uterine fibroids, abnormal uterine bleeding, family history of uterine and ovarian cancer, and desires permanent sterilization PLAN: The risks/benefits/alternatives and personal involved for the planned hysteroscopy D&C with possible fibroid resection though likely the fibroids will not be visible, levonorgestrel IUD insertion, laparoscopic bilateral salpingectomy were reviewed with the patient. Her questions were answered to her satisfaction and she desires to proceed. Consent was signed. I reviewed with her postop instructions and expectations. Dr. Tong will be the primary surgeon, patient is aware. ? ? I have reviewed and updated past medical and surgical history, medications and allergies Assessment & Plan Assessment/Plan (1) Abnormal uterine bleeding (AUB): (2) Fibroids, subserous: (3) Fibroids, intramural: (4) Family history of ovarian cancer: (5) Sterilization:
[2024-10-08] VITALS (8 sets, daily range): BP systolic 118–127; BP diastolic 54–81; PULSE 89–105; RESP 14–16; TEMP 36.3–36.9; O2SAT 83–98; BMI 45.4
[2024-10-08 06:47] LABS: Internal QC Validated? YES +Cl - CLEAR BKGD; Pregnancy, Urine Negative Negative
[2024-10-08] MEDS: 0.9% Normal Saline (1000mL) 1,000 ML 15 ML IV (06:57)
[2024-10-08] MEDS: Acetaminophen 500 MG Tablet 1000 MG PO (06:58)
[2024-10-08] MEDS: Ketorolac 30 MG/ML Syringe IV (06:58)
--- NOTE | 2024-10-08 07:09 | PCM.PRE.AN2 ---
ASA Classification* ASA Classification ASA Classification: 3 Assessment & Plan Anesthesia* Anesthesia Assessment Anesthesia Assessment: Discussed sedation and/or anesthesia options, risks, benefits, and alternatives with patient/parents/legal guardian/POA. Questions invited. The patient/parents/legal guardian/POA seems to understand and agrees to proceed with anesthesia plan. Reviewed the physical assessment, medical history, allergy history and patient home medications list prior to surgery/procedure/anesthetic and documented any changes. Performed airway and anesthesia risk assessments. Anesthesia Type Anesthesia Type: General History Source History Obtained from:: Patient and Chart Anesthesia Focused Assessment* Temperature: 98.4 F Pulse Rate: 105 Blood Pressure: 126/81 Respiratory Rate: 16 Pulse Ox: 98 Oxygen Delivery Method: Room Air Airway Assessment Mouth opens: >3 cm Mallampati Score: IV Teeth Condition: Caps/Crowns (Patient has a crown on molar. It is tight.) Neck Range of motion (ROM): Full ROM Focused Labs Anesthesia Preop lab: CBC WBC 10.2 K/mm3 (4.4-11.0) 12/12/20 11:12/12/20 RBC 4.47 M/mm3 (4.2-5.4) 12/12/20 11:12/12/20 Hgb 12.3 g/dL (12.0-15.0) 12/12/20 11:12/12/20 Hct 38.9 % (37-47) 12/12/20 11:25 12/12/20 Plt Count 186 K/mm3 (150-450) 12/12/20 11:25 12/12/20 CHEMISTRY Potassium 3.8 mmol/L (3.5-5.1) 12/12/20 11:12/12/20 Sodium 137 mmol/L (136-145) 12/12/20 11:12/12/20 BUN 12 mg/dL (7-18) 12/12/20 11:12/12/20 Creatinine 1.13 mg/dL (0.55-1.02) H 12/12/20 11:25 12/12/20 Glucose 117 mg/dL (74-106) H 12/12/20 11:25 12/12/20 TSH 0.92 uIU/mL (0.358-3.74) 01/22/24 11:02 01/22/24 COAG Urine Test Negative Negative 10/08/24 06:25 10/08/24 Pre-Assessment Diagnosis/Proposed Procedure Planned Operative Procedure(s): LAP BILAT SALPINGECTOMY HYSTEROSCOPY D&C POSS POLYP RESECTION IUD INSERTION Anesthesia History 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 When Was Last Pacemaker Check QUESTION #4 FULL TEXT: You/Your Family Experience fever (hyperthermia) with Anesthesia Last Oral Intake Last Oral intake: Last Oral Intake NPO since 22:30 10/08/24 06:42 Meds taken in AM with sips of water? Meds patient instructed to take am of surgery PONV PONV - coal weigher: PONV - coal weigher Female Yes 09/24/24 08:19 HX of Motion Sickness No 09/24/24 08:19 HX of N/V After Surgery No 09/24/24 08:19 Non-Smoker Yes 09/24/24 08:19 Duration of Surgery greater Yes 09/24/24 08:19 than 60 minutes Number of Risk Factors 3 09/24/24 08:19 PONV Score Moderate Risk 09/24/24 08:19 Height & Weight Height & Weight: Anesthesia: Height & Weight Height 5 ft 10 in 10/08/24 06:42 Weight: 143.7 kg 10/08/24 06:42 Body Mass Index (BMI) 45.4 10/08/24 06:42 Respiratory Assessment Respiratory Assessment - coal weigher: Respiratory Tract Infection Hx - coal weigher Hx Respiratory Tract Infection No 09/24/24 08:19 STOP Sleep Apnea STOP Sleep Apnea - coal weigher: STOP Sleep Apnea - coal weigher Hx Hypertension Yes: CONTROLLED WITH MED 09/24/24 08:19 Hx Sleep Apnea No 09/24/24 08:19 CPAP BIPAP Do you snore loudly (louder No 09/24/24 08:19 than talking or can be heard Do you often feel tired/ No 09/24/24 08:19 fatigued/ sleepy during daytime? Has anyone observed you stop No 09/24/24 08:19 breathing during sleep? STOP Results Negative 09/24/24 08:19 QUESTION #5 FULL TEXT : Do you snore loudly (louder than talking or can be heard through closed doors)? 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 Specify any problems Hx of Preganancy in last 3 No 09/24/24 08:19 Months Nurse Filling Out Transfusion DSCHRIBER 09/24/24 08:19 & Questions: Date: 09/24/24 09/24/24 08:19 Time: 08:20 09/24/24 08:19 Patient unable to answer at this time (ie. confused, unrespo /Reproduction History /Reproductive History - coal weigher: /Reproductive Hx- coal weigher Hx Now No 09/24/24 08:19 Gestational Age (in weeks): EDC: Hx Hx Para Hx Section SAB No 09/24/24 08:19 Active Medications Active Medications: Current Medications Generic Name Dose Route Start Last Admin Trade Name Freq PRN Reason Stop Dose Admin Acetaminophen 1,000 mg 10/08/24 07:30 10/08/24 06:58 Acetaminophen 500 Mg Tablet PO 10/08/24 07:31 1,000 mg PREOP ONE Administration Sodium Chloride 1,000 mls @ 15 mls/hr 10/08/24 06:05 10/08/24 06:57 IV 10/13/24 19:24 15 mls/hr .Q48H ANATOLY Administration Ketorolac Tromethamine 30 mg 10/08/24 07:30 10/08/24 06:58 Ketorolac 30 Mg/Ml Syringe IV 10/08/24 07:31 30 mg PREOP ONE Administration Levonorgestrel 1 each 10/08/24 07:30 Levonorgestrel Iud (Liletta) INTRA-UTER 10/08/24 07:31 X1 ONE [facility] Medical History Wears glasses High cholesterol Leg cramps Hypertension Alcohol use Diabetes Anemia Back pain Migraine headache Injury of head and neck Non-smoker History of edema Hydronephrosis due to obstruction of ureter Acute pyelonephritis Urinary tract infection Home Medications ?Medication ?Instructions ?Recorded ?Last Taken ?Type Lactobacillus rhamnosus GG 10 1 cap PO DAILY 01/17/21 Unknown History billion cell capsule (Culturelle) biotin 10,000 mcg capsule 10,000 mcg PO DAILY 01/17/21 Unknown History cetirizine 10 mg capsule (Zyrtec) 10 mg PO DAILY 01/17/21 Unknown History ascorbic acid (vitamin C) 1,000 mg 1 g PO DAILY 09/24/24 Unknown History tablet (C-1000) ferrous sulfate, dried 160 mg (50 160 mg PO DAILY 09/24/24 Unknown History mg iron) tablet,extended release (Slow Release Iron) hydrochlorothiazide 12.5 mg tablet 12.5 mg PO DAILY 09/24/24 Unknown History lisinopril 2.5 mg tablet 2.5 mg PO DAILY 09/24/24 Unknown History magnesium 100 mg tablet 400 mg PO DAILY 09/24/24 Unknown History multivitamin with iron (Hair 1 tab PO DAILY 09/24/24 Unknown History Vitamins tablet) rosuvastatin 5 mg tablet 5 mg PO DAILY 09/24/24 Unknown History tirzepatide 15 mg/0.5 mL 15 mg subcut TU 09/24/24 09/29/24 History subcutaneous pen injector (Mounjaro) Allergy/AdvReac Type Severity Reaction Status Date / Time ciprofloxacin (From Cipro) Allergy Hives Verified 09/24/24 08:13 nitrofurantoin (From Allergy Hives Verified 09/24/24 08:13 Macrobid) oxycodone (From Percocet) AdvReac Intermediate Vomiting Verified 10/08/24 06:53 Surgical History Hx of cystoscopy History of section History of discectomy History of cholecystectomy Social History Smoking Status: Never smoker Review of Systems (Anesthesia) ROS Narrative System reviewed and no additional complaints, except as documented.
[2024-10-08] MEDS: Lubricating Jelly 60 GM Tube 30 GM (07:14)
--- NOTE | 2024-10-08 07:16 | DCINST_ITS ---
Discharge Instructions Diet Discharge Diet: No restrictions DC O2, CPAP, BIPAP needs Home O2 Discharge instructions: No Dressing / Incision May resume sexual activity in: 2 weeks Lifting Restrictions: 20-25 lbs Dressing / Incision Call your doctor if your incision/area has: Continuous Slow Oozing, Sudden Increased Bleeding, Increased Pain/ Swelling, Increased Redness, Foul Smelling Discharge and Swelling at the incision site Call your doctor if you observe: Fever of 101 or Higher, Inability to urinate, Inability to have a bowel movement, Using more than 1 pad per hour and Uncontrolled pain Additional Dressing/Incision Instructions:: You have skin glue over your incision sites, do not pick off. You may shower and let the soap and water run over the incision sites and dab dry. Follow Up Care Please Follow Up With: Coco Helms MD When: 1-2 weeks post OP if you need an appointment please call [phone] Test Results: Test results from this visit will be discussed in further detail at your follow- up appointment, if applicable. Discharge Plan Admission Attending Provider: Cheri Elam Primary Care Provider: Alpesh Fischer Instructions Print Language: Zimbabwean Discharge Orders/Prescriptions Prescriptions: No Action biotin 10,000 mcg Capsule 10,000 mcg PO DAILY Culturelle 10 billion cell Capsule 1 cap PO DAILY Zyrtec 10 mg Capsule 10 mg PO DAILY lisinopril 2.5 mg tablet 2.5 mg PO DAILY rosuvastatin 5 mg tablet 5 mg PO DAILY hydrochlorothiazide 12.5 mg tablet 12.5 mg PO DAILY Mounjaro 15 mg/0.5 mL pen injector 15 mg SUBCUT TU Patient Comments: [NO ORIGINAL SIG] Slow Release Iron 160 mg (50 mg iron) tablet extended release 160 mg PO DAILY magnesium 100 mg tablet 400 mg PO DAILY ascorbic acid (vitamin C) [C-1000] 1,000 mg tablet 1 g PO DAILY multivitamin with iron [Hair Vitamins] Tablet 1 tab PO DAILY Referrals / Follow Up: Alpesh Fischer DO [Primary Care Provider] - Disposition Disposition (needs filled in before D/C Order can be placed): Home, Self Care
[2024-10-08] MEDS: Levonorgestrel IUD (Liletta) 1 EACH INTRA-UTER (07:30)
--- NOTE | 2024-10-08 07:30 | EMB_PTH ---
PATIENT: KUNAL CÁRDENAS LOC: [facility] U#:[id number] AGE/SX: 48/F ROOM: RE10/08/[address]: Dr. Cheri Elam MD : [id number] BED: DIS: 10/08/2024 SPEC #: [id number] RECD: 10/08/24 13:44 STATUS: LEXI REIsabelle #: [id number] LEO: 10/08/24 07:[address]: Cheri Elam DEPT: SURGICAL PATHOLOGY RECD BY: Kodi Soria ENTERED: 10/08/24 13:45 SP TYPE: ENDOM BX/C MARIE DR: Dr. Alpesh Fischer, DO Tissues: A - Endometrium, NOS B - Fallopian tube Procedures: Surgery Specimen Level II Surgery Specimen Level IV HEADER OPERATION: Laparoscopic salpingectomy, hysteroscopy, D&C PRE-OP DIAGNOSIS: Abnormal uterine bleeding, fibroids, subserous, fibroids, intramural, family history of ovarian cancer, sterilization TISSUE SUBMITTED: A- Endometrial curettings, B- Bilateral fallopian tubes MICROSCOPIC DIAGNOSIS A. Endometrium curettage: * Predominately benign endocervical/lower uterine segment tissue with scant fragments of inactive endometrium B. Bilateral fallopian tubes, salpingectomy: * Benign fallopian tubes with complete cross sections obtained and benign paratubal cysts MICROSCOPIC DESCRIPTION Slides are reviewed. GROSS DESCRIPTION A. Received in formalin in a container labeled with the patient's name, date of , and endometrial curettings are multiple morris-pink fragments of soft tissue admixed with blood and mucus measuring 2.5 x 1.7 x 0.4 cm in aggregate. Submitted in toto in A1. B. Received in formalin in a container labeled with the patient's name, date of , and bilateral fallopian tubes are 2 unoriented fimbriated fallopian tube segments each measuring 3.5 cm in length by 0.8 cm in diameter. Each display previously disrupted morris-pink serosa with feathery fimbriated ends. Serial sections of each reveal a pinpoint lumen. Received in the same container are multiple morris-pink, disrupted fragments of soft tissue measuring 2.3 x 2.1 x 1.2 cm in aggregate. Sectioning reveals morris-pink surfaces with possible lumen. [employer] sections:B1. 1 fallopian tubeB2. Second fallopian tube with sampled disrupted fragments [facility] 10/09/2024 CPT:27678,53660
[2024-10-08 07:31] LABS: Bedside Glucose 127 mg/dL (74-106)
[2024-10-08] MEDS: Bupivacaine Mpf 0.5% 30 ML VIAL (08:40)
--- NOTE | 2024-10-08 09:00 | OP.PCM_ITS ---
Operative Report (Standard) Operative Information Date of Procedure: 10/08/24 Pre-Operative Diagnosis: AUB, fibroid uterus, Sterilization request, family h/o ovarian cancer Post-Operative Diagnosis: same , Omental adhesions Surgery/Procedure Performed: Hysteroscopy, D&C, Insertion liletta IUD, Bilateral salpingectomy, Lysis of omental adhesions vp client services: Yes Pelt Grader: aga cooley [id number] Tasks completed by museum assistant: Opening & closing, Retracting and Other (camera operation ) Type of Anesthesia: General and Local RN Documented Start/Stop Times: Operation Date: 10/08/24 07:30 Case Time Into Pre-Op 10/08/24 06:03 Procedure Start Time: 07:48 Procedure Stop Time: 08:49 Select all DRAINS/GRAFTS/IMPLANTS that apply: Implanted device (liletta IUD) Implanted device details: Liletta IUD Estimated Blood Loss: <10cc Specimen collected: Yes Description of specimen(s) removed: bilateral fallopian tubes, endometrial curettings Description of surgery: After informed consent was obtained patient was taken to the operating room she was placed in supine position she was given anesthesia. She was then placed in the [facility] stirru and she was prepped and draped in normal sterile fashion. Bladder was drained prior to the start of procedure. At this time attention was turned to the vaginal portion where weighted speculum placed at posterior fornix vagina single-tooth tenaculum was used to gently grasp the internal the cervix. uterus was gently sounded to approximately 7cm. Gentle dilatation was performed once adequate dilatation of the cervix was achieved the hysteroscope using normal saline as a distention medium was placed. Tubal ostia visualized. no gross abnormalities noted. sharp curettage performed. Tissue will be sent to pathology for evaluation. Uterine manipulator was placed without difficulty. Legs then placed in parallel with the abdomen the tenaculum and the weighted speculum were removed. 2 towel clamps were placed at level of umbilicus. Marcaine was injected infraumbilical and a small incision was made. The 5 mm trocar was placed under direct visualization. CO2 gas was used to insufflate the intra-abdominal cavity. Upon inspection significant omental adhesion to anterior abdominal wall- left ovarian cyst appreciated. omentum also stuck to anterior aspect of uterus. Bladder adhesions to anterior aspect of uterus. RLQ port placed- marciane injected first then with direct visualization port placed- Omental adhesion taken down with enseal in clear spaces to allow visualization of pelvis. At this time then the LLQ port was then placed First Marcaine was injected and small incision was made a knife and the 5 mm trocars were placed. At this time then tubes were traced back to the fimbriated ends. enseal was used to coagulate and ligate along mesosalpinx bilaterally until tubes removed completely. Good hemostasis was appreciated. At this time procedure was deemed complete successful. Upon manipulation of the left tube the right cyst was incidentally ruptured, clear fluid. the cyst was approximately 4cm- The gas was desufflated on from the intra-abdominal cavity. The trochars were removed. Skin was closed using 4-0 Monocryl in a subcutaneous fashion. Dermabond glue was placed. Instrument lap and needle counts were correct ?2. The uterine manipulator was removed. Weighted speculum was replaced in the vagina and the tenaculum was replaced in the anterior lip of the cervix. At this time the Liletta IUD was placed at the uterine fundus. There were no complications with insertion. Strings were cut to approximate 2 and half centimeters from the cervical os. Good hemostasis was appreciated from the tenaculum site. Vaginal sweep was performed it was negative. There were no complications anticipated normal postoperative course for this patient. Surgical Findings: simple left ovarian cyst. Omental adhesions. no intracavitary lesions noted. bladder adhesions appreciated. Complications Complications: No Admit VTE Documentation VTE Present on Admission: Yes VTE Mechan Device Prophylaxis: SCD's VTE Pharm Prophylaxis ordered?: No Reason prophylaxis not ordered: Treatment Not Indicated
--- NOTE | 2024-10-08 09:10 | PCM.POST.ANE ---
Anesthesia: Postop Eval I Current Vital Signs Temperature: 97.6 F Pulse Rate: 98 Blood Pressure: 121/59 Respiratory Rate: 16 Pulse Ox: 92 Assessment Airway patent: Yes Spontaneous unlabored respirations: Yes nausea: No Vomiting: No Anesthesia Complication: No Fluid Hydration Crystalloid volume administer (ml): 1,000 Total IV fluid infused: 1,000 Progress Note Anesthesia document: Postop Eval 1 completed: Yes
--- NOTE | 2024-10-08 10:45 | POSTOPAN2_ITS ---
Anesthesia Postop Eval I Sum Postop Eval Completion status Anesthesia document: Postop Eval 1 completed: Yes Anesthesia Postop Eval I Summary Anesthesia Postop Eval I Summary: Anesthesia Postop Eval I: Assessment Summary Airway patent Yes 10/08/24 09:10 SHIPBOARD INTELLIGENCE ANALYST.TNES Spontaneous unlabored Yes 10/08/24 09:10 SHIPBOARD INTELLIGENCE ANALYST.TNES respirations Mental status nausea No 10/08/24 09:10 SHIPBOARD INTELLIGENCE ANALYST.TNES Vomiting No 10/08/24 09:10 SHIPBOARD INTELLIGENCE ANALYST.TNES Anesthesia Postop Eval I: Fluid Summary Crystalloid volume administer 1,000 10/08/24 09:10 SHIPBOARD INTELLIGENCE ANALYST.TNES (ml) Colloids volume administered ( ml) Blood Product volume administered (ml) Total IV fluid infused 1,000 10/08/24 09:10 SHIPBOARD INTELLIGENCE ANALYST.TNES Anesthesia Postop Eval I: Summary Notes Anesthesia Complication No 10/08/24 09:10 SHIPBOARD INTELLIGENCE ANALYST.TNES Anesthesia Complication Comment: Post-operative progress note Anesthesia: Postop Eval II Evaluation Mental status: Awake and Calm Pain Level: 1 nausea: No Vomiting: No Complications Anesthesia Complication: No
--- NOTE | 2024-10-08 10:45 | PCM.POSTANE2 ---
Anesthesia Postop Eval I Sum Postop Eval Completion status Anesthesia document: Postop Eval 1 completed: Yes Anesthesia Postop Eval I Summary Anesthesia Postop Eval I Summary: Anesthesia Postop Eval I: Assessment Summary Airway patent Yes 10/08/24 09:10 SURGICAL ELASTIC KNITTER HAND FRAME.TNES Spontaneous unlabored Yes 10/08/24 09:10 SURGICAL ELASTIC KNITTER HAND FRAME.TNES respirations Mental status nausea No 10/08/24 09:10 SURGICAL ELASTIC KNITTER HAND FRAME.TNES Vomiting No 10/08/24 09:10 SURGICAL ELASTIC KNITTER HAND FRAME.TNES Anesthesia Postop Eval I: Fluid Summary Crystalloid volume administer 1,000 10/08/24 09:10 SURGICAL ELASTIC KNITTER HAND FRAME.TNES (ml) Colloids volume administered ( ml) Blood Product volume administered (ml) Total IV fluid infused 1,000 10/08/24 09:10 SURGICAL ELASTIC KNITTER HAND FRAME.TNES Anesthesia Postop Eval I: Summary Notes Anesthesia Complication No 10/08/24 09:10 SURGICAL ELASTIC KNITTER HAND FRAME.TNES Anesthesia Complication Comment: Post-operative progress note Anesthesia: Postop Eval II Evaluation Mental status: Awake and Calm Pain Level: 1 nausea: No Vomiting: No Complications Anesthesia Complication: No
== END 2024-10-08 11:13 | disposition home or self-care (01) ==
LOC: SDC 05:57 → AC 06:00
PROVIDERS: Obstetrics & Gynecology; PCP Family Medicine; Referring Provider Obstetrics & Gynecology; Visit Provider Obstetrics & Gynecology
PROC: (CPT 58661; principal; 2024-10-08 07:15)
PROC: 0UB98ZZ Excision of Uterus, Via Natural or Artificial Opening Endoscopic (ICD-10-PCS; CPT 58558; 2024-10-08 07:15)
DX: N83.8 Other noninflammatory disorders of ovary, fallopian tube and broad ligament (principal); E11.9 Type 2 diabetes mellitus without complications; N93.9 Abnormal uterine and vaginal bleeding, unspecified; D25.1 Intramural leiomyoma of uterus; Z30.2 Encounter for sterilization; Z79.85 Long-term (current) use of injectable non-insulin antidiabetic drugs; Z79.84 Long term (current) use of oral hypoglycemic drugs; Z79.899 Other long term (current) drug therapy; D25.2 Subserosal leiomyoma of uterus; I10 Essential (primary) hypertension
CPT/HCPCS: 58661; 58558; 58300; 00840; 81025; 82962; 88302; 88305; J2405